=== PATIENT | female | born 1970 | race American Indian/Alaskan Native ===

== ENCOUNTER 2017-02-08 05:59 | Emergency (ER) | payer OTHER ==
[2017-02-08 06:28] VITALS: BP 142/99
[2017-02-08 06:59] LABS: Basophils % (Auto) 1.1 % (0.0-1.8); Eosinophils % (Auto) 1.3 % (0.0-4.3); Hematocrit 37.8 % (30.3-42.9); Hemoglobin 12.5 gm/dl (10.1-14.3); Mean Corpuscular HGB Conc 33 % (30-34); Mean Corpuscular Hemoglobin 29 pg (28-32); Mean Corpuscular Volume 88 fl (79-97); Platelet Count 293 K/mm3 (140-440); Red Blood Count 4.31 M/mm3 (3.65-5.03); Red Cell Distribution Width 13.4 % (13.2-15.2); White Blood Count 5.3 K/mm3 (4.5-11.0)
[2017-02-08 07:00] LABS: INR 1.03 (0.87-1.13)
[2017-02-08 07:01] LABS: Partial Thromboplastin Time 32.3 Sec. (24.2-36.6)
[2017-02-08 08:24] LABS: Anion Gap 16 mmol/L; BUN/Creatinine Ratio 13.33; Blood Urea Nitrogen 12 mg/dL (7-17); Calcium 9.1 mg/dL (8.4-10.2); Carbon Dioxide 23 mmol/L (22-30); Chloride 104.9 mmol/L (98-107); Glucose 90 mg/dL (65-100); Potassium 4.1 mmol/L (3.6-5.0); Sodium 140 mmol/L (137-145)
--- NOTE | 2017-02-11 15:10 | ED Elopement Review ---
ED Pt Elopement review - Results review Lab results: Laboratory Tests 02/08/17 02/08/17 02/08/17 06:28 06:38 06:38 WBC 5.3 RBC 4.31 Hgb 12.5 Hct 37.8 MCV 88 MCH 29 MCHC 33 RDW 13.4 Plt Count 293 Lymph % (Auto) 35.7 H Whitley % (Auto) 10.9 H Eos % (Auto) 1.3 Baso % (Auto) 1.1 Lymph # 1.9 Whitley # 0.6 Eos # 0.1 Baso # 0.1 Seg Neutrophils % 51.0 Seg Neutrophils # 2.7 PT 13.4 INR 1.03 APTT 32.3 Thrombin Time Sodium Potassium Chloride Carbon Dioxide Anion Gap BUN Creatinine Estimated GFR BUN/Creatinine Ratio Glucose POC Glucose 84 Calcium Troponin T 02/08/17 02/08/17 06:38 06:38 WBC RBC Hgb Hct MCV MCH MCHC RDW Plt Count Lymph % (Auto) Whitley % (Auto) Eos % (Auto) Baso % (Auto) Lymph # Whitley # Eos # Baso # Seg Neutrophils % Seg Neutrophils # PT INR APTT Thrombin Time 15.3 Sodium 140 Potassium 4.1 Chloride 104.9 Carbon Dioxide 23 Anion Gap 16 BUN 12 Creatinine 0.9 Estimated GFR > 60 BUN/Creatinine Ratio 13.33 Glucose 90 POC Glucose Calcium 9.1 Troponin T < 0.010 - Call Back decision Pt Call Back Decision: No action required
== END 2017-02-08 12:35 | disposition left against medical advice (07) ==
LOC: ED 05:59
DX: R20.2 Paresthesia of skin (principal); Z53.21 Procedure and treatment not carried out due to patient leaving prior to being seen by health care provider
CPT/HCPCS: 36415; 80048; 82962; 84484; 85025; 85610; 85670; 85730; 93005; 93010